=== PATIENT | female | born 2005 | race Caucasian/White ===

== ENCOUNTER 2025-02-12 07:41 | Emergency (ER) | payer BC, SELFPAY ==
[2025-02-12 07:46] VITALS: BP 121/88
--- NOTE | 2025-02-12 08:17 | ED.GENMED ---
History of Present Illness
General
Chief Complaint: Vaginal Bleeding
Source: patient
Exam Limitations: none
Time Seen by Provider: 02/12/25 08:10
Nursing documentation reviewed up to this point in time: agreed with
History of Present Illness
History of Present Illness:
The patient is a 19-year-old female with hx anxiety on Lexapro, presenting with complications related to menstrual bleeding. She reports that her period started approximately two and a half weeks ago, ended briefly for three days, and then resumed.
The bleeding is described as very heavy, accompanied by significant cramping, despite the use of ibuprofen which has been ineffective. She also reports passing small clots, described as about half the size of a dime. The patient is currently on
low-dose estrogen control (Loestrin). States she's on he second pad since 6 a.m. Used 4 pads yesterday.
Past History
Past History
ED Past Medical History: Psychiatric (anxiety)
ED Past Surgical History: None
Social History
Tobacco: Non-smoker
Alcohol: None
Personal: Single
Living: other (lives in [place], working here in childcare for the summer)
Review of Systems
Review of Systems
Allergies reviewed?: Yes
All Other Systems: ROS reviewed and negative except as documented in HPI and ROS
Constitutional: Denies fever or fatigue
Respiratory: Denies trouble breathing
Cardiac: Denies chest pain
ABD/GI: Reports abdominal pain (cramping); Denies nausea or vomiting
: Denies dysuria
Neurological: Denies dizzy or weakness
Phy Exam
Physical Exam
Physical Exam:
GENERAL: No acute distress. A&Ox3.
CONSTITUTIONAL: Afebrile.
EYES: clear, conjunctivae normal
ENMT: moist mucus membranes, Pharynx nl
RESPIRATORY: Regular respirations, nonlabored, lungs clear.
CARDIOVASCULAR: Regular rate and rhythm, no murmurs, no rubs.
GI: Soft, nontender, normal BS
MUSCULOSKELETAL: Moves with ease. Well perfused.
SKIN: Warm, dry, pink
PSYCH: Normal mood and affect. Well kept, interactive and appropriate
NEUROLOGIC: Awake, alert and oriented. No focal neurological deficits
Course
Orders/Labs/Results
Orders:
Orders
02/12/25 08:11
Test Result ONCE
02/12/25 08:18
US Pelvis Only (non-obstetric) Urgent
Comment:
Reason For Exam: cramping, prolonged period with clots
02/12/25 08:36
Complete Blood Count/With Diff Urgent
Comprehensive Metabolic Panel Urgent
HCG, Serum Qualitative Screen Urgent
02/12/25 09:45
Urinalysis Reflex To Culture Urgent
Date Specimen was Collected: 02/12/25
Time Specimen was Collected: 09:43
Urine Microscopic Reflex Cult Urgent
Abnormal Lab Results
02/12/25 02/12/25
08:36 09:45
MPV 10.7 H fL
(7.4-10.4)
Chloride 109 H mmol/L
(98-107)
Ur Occult Blood Reflex 4+ A
(Negative)
Urine RBC 50-60 A /HPF
(0-2)
Urine Bacteria (Reflex) Few A
(Negative)
Urine Albumin (Reflex) 2+ A
(Neg - Trace)
02/12/25 08:36
02/12/25 08:36
Vital Signs
Initial and Last Documented VS:
Initial Vital Signs
Temp Pulse Resp BP Pulse Ox
98.0 F 78 16 121/88 98
02/12/25 07:46 02/12/25 07:46 02/12/25 07:46 02/12/25 07:46 02/12/25 07:46
Last Documented Vital Signs
Temp Pulse Resp BP Pulse Ox
98.0 F 78 16 121/88 98
02/12/25 07:46 02/12/25 07:46 02/12/25 07:46 02/12/25 07:46 02/12/25 08:18
MDM/Problems Addressed
Differential Diagnosis Includes:
Uterine fibroids, , heavy menstrual bleeding endometriosis
MDM/Problems Addressed:
The patient is a 19-year-old female with hx anxiety on Lexapro, presenting with complications related to menstrual bleeding. She reports that her period started approximately two and a half weeks ago, ended briefly for three days, and then resumed.
The bleeding is described as very heavy, accompanied by significant cramping, despite the use of ibuprofen which has been ineffective. She also reports passing small clots, described as about half the size of a dime. The patient is currently on
low-dose estrogen control (Loestrin). States she's on he second pad since 6 a.m. Used 4 pads yesterday.
NAD
Plan:
- Perform basic blood work to check hemoglobin levels and rule out anemia due to heavy menstrual bleeding, r/o .
- Schedule an ultrasound to evaluate the cause of abnormal bleeding.
- Continue supportive care as advised by [facility].
10:30 AM:
CBC normal
CMP normal
hCG negative
UA with no infection
1:00 p.m.
US unremarkable
Pt has had no significant bleeding during visit. Reassured.
Referred to [facility]
*Pulse Oximetry
SaO2: 98
Oxygen Mode of Delivery: Room air
Patient hypoxic: not evaluated
*Critical Care Note
Total Time (30-74mins, 75-104mins- exclusive of procedures): Not Applicable
ED Attending Note
-
Portions of this chart may have been created with voice recognition software.� Occasional wrong word or��sound alike� substitutions may have occurred due to the inherent limitations of voice recognition software.
Discharge Plan
Departure
Patient Disposition: Home (Routine Discharge)
Date of Disposition: 02/12/25
Time of Disposition: 13:04
Patient with high blood pressure during this ER visit?: No
Condition: Good
Discharge Problem:
Abnormal vaginal bleeding
Instructions: Heavy periods - ED discharge instructions
Referrals:
Nuvia Arita MD [Active, Gynecology] - Next open appointment
NONE,* [Family Provider, Internal Medicine]
Activity Restrictions/Additional Instructions:
As we discussed, your workup here today shows nothing worrisome.
Ibuprofen 600 mg (with food) every 6 hours as needed for cramps.
Interventions
Interventions:
*Risk Screen - Suicide Last Done: 02/12/25 07:46
*General Assessment Last Done: 02/12/25 13:17
*Neglect/Abuse Screening Last Done: 02/12/25 07:46
*ED- Fall Risk Assessment Last Done: 02/12/25 13:17
*ED COVID-19 Vaccine History Last Done: 02/12/25 13:17
*Nursing Disposition Last Done: 02/12/25 13:17
ED-Female Genitourinary Assessment Last Done: 02/12/25 13:06
Discharge Date and Time
Discharge Date/Time: 02/12/25 13:18
Print Language: [id number]
[2025-02-12 09:51] LABS: Hematocrit 38.0 % (37.0-47.0); Hemoglobin 13.2 g/dL (12.0-16.0); Mean Corp Hgb Conc. 34.7 g/dL (33.0-37.0); Mean Corpuscular Volume 84.4 fL (81.0-99.0); Nucleated Red Blood Cells % 0 %; Platelet Count 282 10^3/uL (130-400); Red Cell Dist. Width 12.3 % (11.5-14.5)
[2025-02-12 09:54] LABS: Urine Character Clear (Clear)
[2025-02-12 10:03] LABS: Urine Red Blood Cell 50-60 /HPF (0-2)
[2025-02-12 10:13] LABS: HCG, Serum Qualitative Screen Negative
[2025-02-12 10:15] LABS: ALT (SGPT) 16 U/L (0-35); AST (SGOT) 23 U/L (14-36); Albumin 4.9 g/dl (3.5-5.0); Alkaline Phosphatase 53 U/L (38-126); Blood Urea Nitrogen 10 mg/dl (7-17); Calcium 9.6 mg/dl (8.4-10.2); Carbon Dioxide 23 mmol/L (22-30); Chloride 109 mmol/L (98-107); Glucose 99 mg/dl (70-99); Potassium 4.2 mmol/L (3.5-5.1); Sodium 139 mmol/L (135-145); Total Protein 8.2 g/dl (6.3-8.2); eGFR > 60.00
== END 2025-02-12 13:18 | disposition home or self-care (01) ==
LOC: EMR 07:41
PROVIDERS: Registered Nurse; EMERGENCY PHYSICIAN Emergency Medicine
DX: N93.9 Abnormal uterine and vaginal bleeding, unspecified (principal); R10.9 Unspecified abdominal pain; F41.9 Anxiety disorder, unspecified; F32.A Depression, unspecified; Z79.3 Long term (current) use of hormonal contraceptives
CPT/HCPCS: 99284; 76856; 80053; 81003; 81015; 84703; 85025